=== PATIENT | female | born 1945 | race Hispanic/Latino ===

== ENCOUNTER 2019-03-25 15:54 | Emergency (ER) | payer MEDICARE, OTHER ==
[~2019-03-25] VITALS: Ht 152.4 cm; Wt 34.0 kg
--- OUTSIDE RECORDS SUMMARY | 2019-03-25 15:56 | XMS REPORT ---
Author Author [facility] Address Unknown Phone Unavailable Care Team Providers Care Process Control Tech Name Role Phone LOWELLLUCIANA Dangelo MAURO Unavailable Unavailable SERG POTTER Unavailable Unavailable Problems This patient has no known problems. Allergies, Adverse Reactions, Alerts This patient has no known allergies or adverse reactions. Medications This patient has no known medications. Results Test Description Test Time Test Comments Text Results Atomic Results Result Comments CT, BRAIN, WITHOUT CONTRAST 2018-07-23 21:06:[address] head without contrast 07/23/2018 9:05 PM CLINICAL HISTORY: 72-year-old woman with severe diffuse headache for 2 days, no injury, not on anticoagulant TECHNIQUE: Axial noncontrast CT images through the head were obtained. This examination was performed according to our departmental dose optimization program, which includes automated exposure control, adjustment of the mA and/or kV according to patient size, and/or use of iterated reconstruction technique. COMPARISON: 05/11/2017 FINDINGS: There is no hemorrhage, extra-axial collection, mass, hydrocephalus, or midline shift. There is mild microvascular ischemia in the supratentorial white matter. There is atherosclerotic calcification of the intracranial arterial vasculature. There is generalized parenchymal volume loss. There is a right mastoid effusion. The visualized paranasal sinuses and left tympanomastoid cavity are well aerated. The skull is osteopenic, but intact. IMPRESSION: No intracranial hemorrhage or mass effect. Chronic appearing microvascular and involutional changes. If concern for acute pathology persists, further evaluation with MRI is recommended. Signed: Wilfred Navarro Verified Date/Time: 07/23/2018 21:06:42 Reading Location: [facility] Radiology Reading Room D CULTURE 2017-05-17 10:00:00 CULTURE (Biovest InternationalAKER) (test lgef=4991) No growth in 5 days BLOOD [id number] 10:00:00* Test Item Value Reference Range Comments CULTURE (BEAKER) (test rmnb=9861) No growth in 5 days RAPID TROPONIN [id number] 16:33:00* Test Item Value Reference Range Comments RAPID TROPONIN I (BEAKER) (test btah=4683) < ng/mL <0.05 CBC (HEMOGRAM ONLY)2017-05-11 16:33:00* Test Item Value Reference Range Comments WHITE BLOOD CELL COUNT (BEAKER) (test jedf=964) 11.3 K/ L 4.0-10.0 RED BLOOD CELL COUNT (BEAKER) (test zhbl=096) 4.78 M/ L 4.00-5.00 HEMOGLOBIN (BEAKER) (test xoaa=235) 12.5 GM/DL 12.0-15.0 HEMATOCRIT (BEAKER) (test ipej=743) 39.1 % 36.0-45.0 MEAN CORPUSCULAR VOLUME (BEAKER) (test vrjg=058) 81.8 fL 82.0-99.0 MEAN CORPUSCULAR HEMOGLOBIN (BEAKER) (test iret=642) 26.2 pg 27.0-33.0 MEAN CORPUSCULAR HEMOGLOBIN CONC (BEAKER) (test tkwe=287) 32.0 GM/DL 32.0-36.0 RED CELL DISTRIBUTION WIDTH (BEAKER) (test sxve=505) % 10.3-14.2 Test not performed PLATELET COUNT (BEAKER) (test uogj=357) 270 K/CU MM 150-430 BASIC METABOLIC [id number] 16:33:00* Test Item Value Reference Range Comments SODIUM (BEAKER) (test wwqa=250) 134 meq/L 135-148 POTASSIUM (BEAKER) (test yhyw=474) 4.3 meq/L 3.6-5.5 CHLORIDE (BEAKER) (test cklv=621) 97 meq/L 98-106 CO2 (BEAKER) (test etzz=986) 28 meq/L 24-32 BLOOD UREA NITROGEN (BEAKER) (test xjhg=713) 14 mg/dL 10-26 CREATININE (BEAKER) (test ctxf=969) 0.50 mg/dL 0.50-1.20 GLUCOSE RANDOM (BEAKER) (test bcrl=020) 63 mg/dL 70-110 CALCIUM (BEAKER) (test ntek=992) 9.6 mg/dL 8.5-10.5 EGFR (COTY) (test mlot=2035) 122 mL/min/1.73 sq m ESTIMATED GFR IS NOT ACCURATE CREATININE CLEARANCE IN PREDICTING GLOMERULAR FILTRATION RATE. ESTIMATED GFR IS NOT APPLICABLE FOR DIALYSIS PATIENTS. RAD, CHEST, 1 VIEW, NON [id number] 15:17:00Reason for exam:->COUGHShould this be performed at the bedside?->NoFINAL REPORT Chest dated May 11, 2017 COMPARISON: February 26, 2017 Comment: Heart is in the pelvis normal in size. Bronchiectasis is seen bilaterally. There is a interstitial disease present with peribronchial wall thickening. Findings are suggestive of bronchitis. No pleural effusion or pneumothorax is noted. IMPRESSION: Bronchiectasis and bronchitis. Signed: Ludwin Hooper Verified Date/Time: 05/11/2017 15:17:12 Reading Location: [address] Body Reading Room , BRAIN, WITHOUT [id number] 15:03:00FINAL REPORT CT head without contrast 05/11/2017 3:01 PM CLINICAL HISTORY: Headache, acute, norm neuro exam TECHNIQUE: Axial noncontrast CT images through the head were obtained. This examination was performed according to our departmental dose optimization program, which includes automated exposure control, adjustment of the mA and/or kV according to patient size, and/or use of iterated reconstruction technique. COMPARISON: 05/03/2015 FINDINGS: There is no hemorrhage, extra-axial collection, mass, hydrocephalus, or midline shift. There is negligible chronic appearing microvascular ischemia in the supratentorial white matter. There is atherosclerotic calcification of the intracranial nino rial vasculature. There is generalized parenchymal volume loss. There is bilater al maxillary sinusitis. There is a right mastoid effusion, with partial opacific ation of the right middle ear cavity. The skull is unremarkable. IMPRESSION: No intracranial hemorrhage or mass effect. Bilateral maxillary sinusitis and right tympanomastoid cavity opacification. If concern for acute pathology persists, fu rther evaluation with MRI is recommended. Signed: Wilfred Navarro MDReport Verif ied Date/Time: 05/11/2017 15:03:06 Reading Location: [facility] C013V Neuro Reading Room -LACTIC ACID, [id number] 14:44:00* Test Item Value Reference Range Comments POC-LACTIC ACID, VENOUS (BEAKER) (test ydqq=3546) 0.8 mmol/L 0.9-1.7 TESTED AT [facility] [address] [facility] [address] BLOOD [id number] 17:58:00* Test Item Value Reference Range Comments CULTURE (BEAKER) (test wemu=8991) From Aerobic Bottle Only Haemophilus influenzaeType BBeta-lactamase negative GRAM STAIN RESULT (BEAKER) (test ouzf=8051) From aerobic bottle only: gram negative rods HAEMOPHILUS INFLUENZA DETECTEDFirst line therapy: ceftriaxone meropenem if criti sherrell ill or history of an ESBL producing pathogenDe-escalate based on susceptib ilitiesOther organisms and resistance markers not contained in this PCR panel ca nnot be excluded and follow-up of traditional culture results is required. This sample was tested at the [facility] Clinical Microbiology Laboratory using the Gnammo Blood Culture ID Panel. This test is FDA cleared for in vitro diagn ostic use and has been verified and approved by the [facility] Clinical Microbiology laboratory for clinical use. Reference Range: Not DetectedTexas Department of alth Report:Haemophilus influenzae, Non typeableBetalactamse positive Test Perfo rmed by [facility] [address] [place] [id number] # [id number]: Contreras Camargo, Ph.D [facility].BLOOD CULTURE 2017-03-05 18:00:00* Test Item Value Reference Range Comments CULTURE (BEAKER) (test otdh=0167) No growth in 5 days BLOOD [id number] 18:00:00* Test Item Value Reference Range Comments CULTURE (BEAKER) (test eisq=8784) No growth in 5 days MISCELLANEOUS LAB [id number] 14:30:00* Test Item Value Reference Range Comments SCAN RESULT (test lkch=[id number]) Result comments: HAEMOPHILUS INFLUENZA DETECTED First line therapy: ceftriaxone meropenem if critically ill or history of an ESBL producing pathogen De-escalate based on susceptibilities Other organisms and resistance markers not contained in this PCR panel cannot be excluded and follow-up of traditional culture result s is required. This sample was tested at the [facility] Clinical Microbiology Labor atory using the Payoneer Blood Culture ID Panel. This test is FDA clear ed for in vitro diagnostic use and has been verified and approved by the [facility] C linical Microbiology laboratory for clinical use. Reference Range: Not Detected BLOOD [id number] 08:07:00* Test Item Value Reference Range Comments CULTURE (BEAKER) (test dxvv=4528) From Aerobic Bottle Only Same organism has been isolated from culture(s) of the same body site and collection date. Repeat identification performed only after consultation with the clinical microbiology laboratory.Refer to previous culture ofHaemophilus influenzae GRAM STAIN RESULT (BEAKER) (test cekw=8934) From aerobic bottle only: gram negative rods NO BCID REFER TO PREVIOUS H [id number] 04:46:00* Test Item Value Reference Range Comments MAGNESIUM (BEAKER) (test dowm=480) 2.1 mg/dL 1.6-2.6 BASIC METABOLIC [id number] 04:46:00* Test Item Value Reference Range Comments SODIUM (BEAKER) (test gabe=699) 136 meq/L 136-145 POTASSIUM (BEAKER) (test jbje=481) 4.0 meq/L 3.5-5.1 CHLORIDE (BEAKER) (test nyhh=622) 104 meq/L 98-107 CO2 (BEAKER) (test wklo=197) 28 meq/L 22-29 BLOOD UREA NITROGEN (BEAKER) (test ahxb=514) 10 mg/dL 7-21 CREATININE (BEAKER) (test vvly=515) 0.49 mg/dL 0.57-1.25 GLUCOSE RANDOM (BEAKER) (test lpdq=174) 75 mg/dL 70-105 CALCIUM (BEAKER) (test ojnu=680) 8.9 mg/dL 8.4-10.2 EGFR (BEAKER) (test zjyc=0446) 125 mL/min/1.73 sq m ESTIMATED GFR IS NOT ACCURATE CREATININE CLEARANCE IN PREDICTING GLOMERULAR FILTRATION RATE. ESTIMATED GFR IS NOT APPLICABLE FOR DIALYSIS PATIENTS. CBC W/PLT COUNT & AUTO [id number] 04:31:00* Test Item Value Reference Range Comments WHITE BLOOD CELL COUNT (BEAKER) (test pkyo=095) 5.6 K/ L 3.5-10.5 RED BLOOD CELL COUNT (BEAKER) (test utjc=575) 3.65 M/ L 3.93-5.22 HEMOGLOBIN (BEAKER) (test dkbh=531) 9.4 GM/DL 11.2-15.7 HEMATOCRIT (BEAKER) (test rthh=617) 30.0 % 34.1-44.9 MEAN CORPUSCULAR VOLUME (BEAKER) (test vdir=632) 82.2 fL 79.4-94.8 MEAN CORPUSCULAR HEMOGLOBIN (BEAKER) (test anwd=496) 25.8 pg 25.6-32.2 MEAN CORPUSCULAR HEMOGLOBIN CONC (BEAKER) (test bznm=279) 31.3 GM/DL 32.2-35.5 RED CELL DISTRIBUTION WIDTH (BEAKER) (test vupo=539) 14.8 % 11.7-14.4 PLATELET COUNT (BEAKER) (test upng=502) 262 K/CU MM 150-450 MEAN PLATELET VOLUME (BEAKER) (test psnt=267) 8.3 fL 9.4-12.3 NUCLEATED RED BLOOD CELLS (BEAKER) (test ekcj=966) 0 /100 WBC 0-0 NEUTROPHILS RELATIVE PERCENT (BEAKER) (test zylh=181) 69 % LYMPHOCYTES RELATIVE PERCENT (BEAKER) (test vcug=547) 20 % MONOCYTES RELATIVE PERCENT (BEAKER) (test zgpo=749) 10 % EOSINOPHILS RELATIVE PERCENT (BEAKER) (test vzox=122) 1 % BASOPHILS RELATIVE PERCENT (BEAKER) (test uvmq=828) 0 % NEUTROPHILS ABSOLUTE COUNT (BEAKER) (test khpm=140) 3.83 K/ L 1.56-6.13 LYMPHOCYTES ABSOLUTE COUNT (BEAKER) (test eela=688) 1.13 K/ L 1.18-3.74 MONOCYTES ABSOLUTE COUNT (BEAKER) (test qpql=828) 0.56 K/ L 0.24-0.36 EOSINOPHILS ABSOLUTE COUNT (BEAKER) (test bcak=153) 0.03 K/ L 0.04-0.36 BASOPHILS ABSOLUTE COUNT (BEAKER) (test ilhn=326) 0.01 K/ L 0.01-0.08 IMMATURE GRANULOCYTES-RELATIVE PERCENT (BEAKER) (test phwk=8811) 0 % 0-1 [id number] 15:02:00* Test Item Value Reference Range Comments PHOSPHORUS (BEAKER) (test exlh=431) 3.8 mg/dL 2.3-4.7 [id number] 15:02:00* Test Item Value Reference Range Comments MAGNESIUM (BEAKER) (test audp=613) 1.8 mg/dL 1.6-2.6 BASIC METABOLIC [id number] 15:02:00* Test Item Value Reference Range Comments SODIUM (BEAKER) (test zucy=493) 135 meq/L 136-145 POTASSIUM (BEAKER) (test rthy=422) 4.3 meq/L 3.5-5.1 CHLORIDE (BEAKER) (test afhp=215) 104 meq/L 98-107 CO2 (BEAKER) (test dphr=676) 28 meq/L 22-29 BLOOD UREA NITROGEN (BEAKER) (test rrpq=175) 8 mg/dL 7-21 CREATININE (BEAKER) (test mygt=877) 0.47 mg/dL 0.57-1.25 GLUCOSE RANDOM (BEAKER) (test ryhu=454) 102 mg/dL 70-105 CALCIUM (BEAKER) (test slmz=285) 9.1 mg/dL 8.4-10.2 EGFR (BEAKER) (test xkoi=9168) 131 mL/min/1.73 sq m ESTIMATED GFR IS NOT ACCURATE CREATININE CLEARANCE IN PREDICTING GLOMERULAR FILTRATION RATE. ESTIMATED GFR IS NOT APPLICABLE FOR DIALYSIS PATIENTS. URINE [id number] 14:45:00* Test Item Value Reference Range Comments CULTURE (BEAKER) (test hnzc=6528) <10,000 col/mL skin cam [id number] 04:40:00* Test Item Value Reference Range Comments PHOSPHORUS (BEAKER) (test wecr=390) 1.4 mg/dL 2.3-4.7 [id number] 04:32:00* Test Item Value Reference Range Comments MAGNESIUM (BEAKER) (test kach=897) 1.6 mg/dL 1.6-2.6 BASIC METABOLIC [id number] 04:32:00* Test Item Value Reference Range Comments SODIUM (BEAKER) (test wcjd=869) 133 meq/L 136-145 POTASSIUM (BEAKER) (test uihq=960) 3.4 meq/L 3.5-5.1 CHLORIDE (BEAKER) (test nqbj=171) 104 meq/L 98-107 CO2 (BEAKER) (test hqsl=466) 25 meq/L 22-29 BLOOD UREA NITROGEN (BEAKER) (test ucrz=247) 12 mg/dL 7-21 CREATININE (BEAKER) (test osnl=004) 0.46 mg/dL 0.57-1.25 GLUCOSE RANDOM (BEAKER) (test jddv=464) 102 mg/dL 70-105 CALCIUM (BEAKER) (test lwhq=428) 9.1 mg/dL 8.4-10.2 EGFR (BEAKER) (test lbvu=9007) 134 mL/min/1.73 sq m ESTIMATED GFR IS NOT ACCURATE CREATININE CLEARANCE IN PREDICTING GLOMERULAR FILTRATION RATE. ESTIMATED GFR IS NOT APPLICABLE FOR DIALYSIS PATIENTS. LACTIC ACID, VENOUS, WHOLE [id number] 04:26:00* Test Item Value Reference Range Comments LACTATE BLOOD VENOUS (2) (BEAKER) (test xrxz=8814) 1.6 mmol/L 0.5-2.2 Effective 10/19/2015: Units/Reference Range ChangeNew: 0.5-2.2 mmol/L Previous: 5 -20 mg/dLCBC W/PLT COUNT & AUTO [id number] 04:20:00* Test Item Value Reference Range Comments WHITE BLOOD CELL COUNT (BEAKER) (test gmac=390) 8.5 K/ L 3.5-10.5 RED BLOOD CELL COUNT (BEAKER) (test eaua=088) 3.54 M/ L 3.93-5.22 HEMOGLOBIN (BEAKER) (test updh=741) 9.1 GM/DL 11.2-15.7 HEMATOCRIT (BEAKER) (test toyn=055) 29.1 % 34.1-44.9 MEAN CORPUSCULAR VOLUME (BEAKER) (test gyhp=499) 82.2 fL 79.4-94.8 MEAN CORPUSCULAR HEMOGLOBIN (BEAKER) (test ahzi=945) 25.7 pg 25.6-32.2 MEAN CORPUSCULAR HEMOGLOBIN CONC (BEAKER) (test xage=570) 31.3 GM/DL 32.2-35.5 RED CELL DISTRIBUTION WIDTH (BEAKER) (test gypn=337) 14.6 % 11.7-14.4 PLATELET COUNT (BEAKER) (test yxix=893) 241 K/CU MM 150-450 MEAN PLATELET VOLUME (BEAKER) (test oeme=960) 8.6 fL 9.4-12.3 NUCLEATED RED BLOOD CELLS (BEAKER) (test vydc=498) 0 /100 WBC 0-0 NEUTROPHILS RELATIVE PERCENT (BEAKER) (test hsfc=932) 83 % LYMPHOCYTES RELATIVE PERCENT (BEAKER) (test zfiu=327) 11 % MONOCYTES RELATIVE PERCENT (BEAKER) (test daoi=570) 6 % EOSINOPHILS RELATIVE PERCENT (BEAKER) (test opuh=456) 0 % BASOPHILS RELATIVE PERCENT (BEAKER) (test neer=421) 0 % NEUTROPHILS ABSOLUTE COUNT (BEAKER) (test japo=211) 7.03 K/ L 1.56-6.13 LYMPHOCYTES ABSOLUTE COUNT (BEAKER) (test hvvb=964) 0.93 K/ L 1.18-3.74 MONOCYTES ABSOLUTE COUNT (BEAKER) (test tevs=364) 0.49 K/ L 0.24-0.36 EOSINOPHILS ABSOLUTE COUNT (BEAKER) (test cfdk=189) 0.00 K/ L 0.04-0.36 BASOPHILS ABSOLUTE COUNT (BEAKER) (test byds=676) 0.01 K/ L 0.01-0.08 IMMATURE GRANULOCYTES-RELATIVE PERCENT (BEAKER) (test ldfm=4173) 0 % 0-1 CT, CHEST, WITHOUT [id number] 00:54:00FINAL REPORT CT, CHEST, WITHOUT CONTRAST INDICATION: "Acute resp illness, immunocompromised, prior xray" COMPARISON: . No prior chest CTs dating back to at least 2014 TECHNIQUE: Noncontrast axially oriented images were obtained from the thoracic inlet through the lung bases. Coronal and sagittal reformats were provided. DOSE REDUCTION: Dose modulation, iterative reconstruction, and/or weight-based adjustment of the mA/kV was utilized to reduce the radiation dose to as low as reasonably achievable. FINDINGS: Great vessels are normal in course and caliber.No cardiomegaly.Right IJ line terminates in the lower SVC. Redemonstration of varicose bronchiectasis with a lower lobe predominance. There is complete collapse of the middle lobe. There is mosaic attenuation in the upper lobes. There are scattered areas of mucous plugging. 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 The bronchiectasis has wors ened since the most recent prior exam on 08/09/2015. This is most notable in the lower lobes. Additionally, there are small bilateral effusions. The one on the r ight is partially loculated. There is trace fluid tracking along the superior as pect of the major fissures. Visualized portion of the upper abdomen shows no acu te abnormality. No acute osseous abnormality. IMPRESSION:Worsening bronchiectasi s, most likely postinfectious in origin.No obvious superimposed acute infectious process.Small bilateral pleural effusions, partially loculated on the right. No active pulmonary edema. Signed: Emma Smith MDReport Verified Date/Time: 0 02/28/2017 00:54:35 Reading Location: [facility] C0X Ortho Consult Reading Room IRATORY PANEL [id number] 14:07:00* Test Item Value Reference Range Comments HUMAN METAPNEUMOVIRUS (BEAKER) (test xwnr=4269) Not detected Not detected, Inconclusive RHINOVIRUS (BEAKER) (test rozn=8147) Detected Not detected, Inconclusive Assay is not able differentiate between Human Rhinovirus and Enterovirus INFLUENZA A (BEAKER) (test momp=9886) Not detected Not detected, Inconclusive INFLUENZA A SUBTYPE H1 (BEAKER) (test fdeg=7590) Not detected Not detected, Inconclusive INFLUENZA A SUBTYPE H3 (BEAKER) (test mehs=4705) Not detected Not detected, Inconclusive INFLUENZA A SUBTYPE H1-2009 (BEAKER) (test kmgt=9336) Not detected Not detected, Inconclusive INFLUENZA B (BEAKER) (test rlpo=0009) Not detected Not detected, Inconclusive RESPIRATORY SYNCYTIAL VIRUS (BEAKER) (test pxgs=7747) Not detected Not detected, Inconclusive PARAINFLUENZA VIRUS 1 (BEAKER) (test utxp=9311) Not detected Not detected, Inconclusive PARAINFLUENZA VIRUS 2 (BEAKER) (test ojfj=1477) Not detected Not detected, Inconclusive PARAINFLUENZA VIRUS 3 (BEAKER) (test tyvu=8995) Not detected Not detected, Inconclusive PARAINFLUENZA VIRUS 4 (BEAKER) (test cofc=1680) Not detected Not detected, Inconclusive ADENOVIRUS (BEAKER) (test znfv=0601) Not detected Not detected, Inconclusive CORONAVIRUS 229E (BEAKER) (test cnzv=4874) Not detected Not detected, Inconclusive CORONAVIRUS HKU1 (BEAKER) (test jshz=6798) Not detected Not detected, Inconclusive CORONAVIRUS NL63 (BEAKER) (test kjyz=3303) Not detected Not detected, Inconclusive CORONAVIRUS OC43 (BEAKER) (test futt=6296) Not detected Not detected, Inconclusive BORDETELLA PERTUSSIS (BEAKER) (test enzl=8146) Not detected Not detected, Inconclusive CHLAMYDOPHILA PNEUMONIAE (BEAKER) (test pcvc=2221) Not detected Not detected, Inconclusive MYCOPLASMA PNEUMONIAE (BEAKER) (test dcqn=1729) Not detected Not detected, Inconclusive CBC W/PLT COUNT & AUTO [id number] 12:17:00* Test Item Value Reference Range Comments WHITE BLOOD CELL COUNT (BEAKER) (test kvtv=577) 6.9 K/ L 3.5-10.5 RED BLOOD CELL COUNT (BEAKER) (test xisi=152) 4.02 M/ L 3.93-5.22 HEMOGLOBIN (BEAKER) (test ayge=201) 10.2 GM/DL 11.2-15.7 HEMATOCRIT (BEAKER) (test xzwv=269) 33.0 % 34.1-44.9 MEAN CORPUSCULAR VOLUME (BEAKER) (test xhgt=402) 82.1 fL 79.4-94.8 MEAN CORPUSCULAR HEMOGLOBIN (BEAKER) (test vgdc=844) 25.4 pg 25.6-32.2 MEAN CORPUSCULAR HEMOGLOBIN CONC (BEAKER) (test eiaz=142) 30.9 GM/DL 32.2-35.5 RED CELL DISTRIBUTION WIDTH (BEAKER) (test nqqb=207) 14.7 % 11.7-14.4 PLATELET COUNT (BEAKER) (test mwln=694) 242 K/CU MM 150-450 MEAN PLATELET VOLUME (BEAKER) (test ejgq=468) 8.5 fL 9.4-12.3 NUCLEATED RED BLOOD CELLS (BEAKER) (test xrjp=605) 0 /100 WBC 0-0 NEUTROPHILS RELATIVE PERCENT (BEAKER) (test qkib=479) 95 % LYMPHOCYTES RELATIVE PERCENT (BEAKER) (test medx=978) 2 % MONOCYTES RELATIVE PERCENT (BEAKER) (test aeku=745) 2 % EOSINOPHILS RELATIVE PERCENT (BEAKER) (test zfow=108) 0 % BASOPHILS RELATIVE PERCENT (BEAKER) (test mwjq=463) 0 % NEUTROPHILS ABSOLUTE COUNT (BEAKER) (test urxv=049) 6.53 K/ L 1.56-6.13 LYMPHOCYTES ABSOLUTE COUNT (BEAKER) (test uurf=926) 0.16 K/ L 1.18-3.74 MONOCYTES ABSOLUTE COUNT (BEAKER) (test wrqb=906) 0.15 K/ L 0.24-0.36 EOSINOPHILS ABSOLUTE COUNT (BEAKER) (test ulei=277) 0.00 K/ L 0.04-0.36 BASOPHILS ABSOLUTE COUNT (BEAKER) (test mitc=743) 0.01 K/ L 0.01-0.08 IMMATURE GRANULOCYTES-RELATIVE PERCENT (BEAKER) (test wvdd=1488) 0 % 0-1 PROTHROMBIN TIME/[id number] 11:36:00* Test Item Value Reference Range Comments PROTIME (BEAKER) (test jsbm=738) 16.9 seconds 11.7-14.7 INR (BEAKER) (test gmxz=616) 1.4 <=5.9 RECOMMENDED COUMADIN/WARFARIN INR THERAPY RANGESSTANDARD DOSE: 2.0 - 3.0 Inclu amadeo: PROPHYLAXIS for venous thrombosis, systemic embolization; TREATMENT for jamaal ous thrombosis and/or pulmonary embolus.HIGH RISK: Target INR is 2.5-3.5 for pat ients with mechanical heart valves.[id number] 11:36:00* Test Item Value Reference Range Comments PARTIAL THROMBOPLASTIN TIME (BEAKER) (test hoqx=476) 31.7 seconds 22.5-36.0 STREP PNEUMONIAE [id number] 08:59:00* Test Item Value Reference Range Comments STREP PNEUMONIAE ANTIGEN (BEAKER) (test wipy=1531) Presumptive negative for pneumococcal pneumonia - see comment Presumptive negative for pneumococcal pneumonia - see commen Presumptive negative for pneumococcal pneumonia, suggesting no current or recent pneumococcal infection. Infection due to S. pneumoniae cannot be ruled out since the antigen present in the sample may be below the detection limit of the test. LEGIONELLA ANTIGEN, [id number] 08:59:00* Test Item Value Reference Range Comments L. PNEUMOPHILA SEROGP 1 UR AG (BEAKER) (test hsyz=4772) Negative - see comment Negative for L. pneumophila serogroup 1 antigen, suggesting no recent or current infection with this serogroup. Legionellosis cannot be ruled out since other serogroups and species may cause disease. URINALYSIS W/ [id number] 07:18:00* Test Item Value Reference Range Comments COLOR (BEAKER) (test fynq=935) Yellow CLARITY (BEAKER) (test abvw=019) Clear SPECIFIC GRAVITY UA (BEAKER) (test vbmc=837) 1.013 1.001-1.035 PH UA (BEAKER) (test nabc=868) 6.0 5.0-8.0 PROTEIN UA (BEAKER) (test idbr=537) Negative Negative GLUCOSE UA (BEAKER) (test kahm=692) Negative Negative KETONES UA (BEAKER) (test rhnr=653) 10 mg/dL Negative BILIRUBIN UA (BEAKER) (test vixw=458) Negative Negative BLOOD UA (BEAKER) (test fryt=970) Negative Negative NITRITE UA (BEAKER) (test rqwu=838) Negative Negative LEUKOCYTE ESTERASE UA (BEAKER) (test qtpx=275) Trace Negative UROBILINOGEN UA (BEAKER) (test mamc=404) 0.2 mg/dL 0.2-1.0 RBC UA (BEAKER) (test agkl=254) < /HPF WBC UA (BEAKER) (test yrio=256) 3 /HPF BACTERIA (BEAKER) (test yjyr=133) Occasional MUCUS (BEAKER) (test pwle=1495) Rare SQUAMOUS EPITHELIAL (BEAKER) (test euww=217) < /HPF SOURCE(BEAKER) (test avfy=5239) Urine, Voided [id number] 05:27:00* Test Item Value Reference Range Comments PHOSPHORUS (BEAKER) (test gqdd=858) 1.8 mg/dL 2.3-4.7 [id number] 05:27:00* Test Item Value Reference Range Comments MAGNESIUM (BEAKER) (test uqdq=507) 1.7 mg/dL 1.6-2.6 COMPREHENSIVE METABOLIC [id number] 05:27:00* Test Item Value Reference Range Comments TOTAL PROTEIN (BEAKER) (test mnol=994) 5.2 gm/dL 6.0-8.3 ALBUMIN (BEAKER) (test sewh=4534) 2.6 g/dL 3.5-5.0 ALKALINE PHOSPHATASE (BEAKER) (test eopm=560) 64 U/L 40-150 BILIRUBIN TOTAL (BEAKER) (test fxuw=651) 0.6 mg/dL 0.2-1.2 SODIUM (BEAKER) (test kell=762) 132 meq/L 136-145 POTASSIUM (BEAKER) (test wqob=021) 3.7 meq/L 3.5-5.1 CHLORIDE (BEAKER) (test zfog=701) 103 meq/L 98-107 CO2 (BEAKER) (test vdbz=740) 26 meq/L 22-29 BLOOD UREA NITROGEN (BEAKER) (test ghny=334) 12 mg/dL 7-21 CREATININE (BEAKER) (test kzlw=024) 0.47 mg/dL 0.57-1.25 GLUCOSE RANDOM (BEAKER) (test oahz=715) 142 mg/dL 70-105 CALCIUM (BEAKER) (test tucr=502) 9.0 mg/dL 8.4-10.2 AST (SGOT) (BEAKER) (test vbnb=835) 19 U/L 5-34 ALT (SGPT) (BEAKER) (test ihlh=868) 6 U/L 6-55 EGFR (BEAKER) (test ygdc=1451) 131 mL/min/1.73 sq m ESTIMATED GFR IS NOT ACCURATE CREATININE CLEARANCE IN PREDICTING GLOMERULAR FILTRATION RATE. ESTIMATED GFR IS NOT APPLICABLE FOR DIALYSIS PATIENTS. CBC W/PLT COUNT & AUTO [id number] 05:22:00* Test Item Value Reference Range Comments WHITE BLOOD CELL COUNT (BEAKER) (test xtuv=555) 7.8 K/ L 3.5-10.5 RED BLOOD CELL COUNT (BEAKER) (test kthe=359) 3.74 M/ L 3.93-5.22 HEMOGLOBIN (BEAKER) (test fjmo=492) 9.6 GM/DL 11.2-15.7 HEMATOCRIT (BEAKER) (test lkcs=741) 31.0 % 34.1-44.9 MEAN CORPUSCULAR VOLUME (BEAKER) (test frcj=222) 82.9 fL 79.4-94.8 MEAN CORPUSCULAR HEMOGLOBIN (BEAKER) (test ixfb=545) 25.7 pg 25.6-32.2 MEAN CORPUSCULAR HEMOGLOBIN CONC (BEAKER) (test xvyi=732) 31.0 GM/DL 32.2-35.5 RED CELL DISTRIBUTION WIDTH (BEAKER) (test taei=100) 14.9 % 11.7-14.4 PLATELET COUNT (BEAKER) (test clzx=242) 224 K/CU MM 150-450 MEAN PLATELET VOLUME (BEAKER) (test pvwf=638) 8.4 fL 9.4-12.3 NUCLEATED RED BLOOD CELLS (BEAKER) (test pydx=066) 0 /100 WBC 0-0 NEUTROPHILS RELATIVE PERCENT (BEAKER) (test lbbg=905) 96 % LYMPHOCYTES RELATIVE PERCENT (BEAKER) (test wfqq=769) 3 % MONOCYTES RELATIVE PERCENT (BEAKER) (test aywx=686) 1 % EOSINOPHILS RELATIVE PERCENT (BEAKER) (test zrpq=926) 0 % BASOPHILS RELATIVE PERCENT (BEAKER) (test gmev=184) 0 % NEUTROPHILS ABSOLUTE COUNT (BEAKER) (test oelw=817) 7.44 K/ L 1.56-6.13 LYMPHOCYTES ABSOLUTE COUNT (BEAKER) (test mdgz=739) 0.22 K/ L 1.18-3.74 MONOCYTES ABSOLUTE COUNT (BEAKER) (test ehil=413) 0.09 K/ L 0.24-0.36 EOSINOPHILS ABSOLUTE COUNT (BEAKER) (test svdz=675) 0.00 K/ L 0.04-0.36 BASOPHILS ABSOLUTE COUNT (BEAKER) (test klmc=521) 0.00 K/ L 0.01-0.08 IMMATURE GRANULOCYTES-RELATIVE PERCENT (BEAKER) (test cqio=0454) 0 % 0-1 LACTIC ACID, VENOUS, WHOLE [id number] 05:17:00* Test Item Value Reference Range Comments LACTATE BLOOD VENOUS (2) (BEAKER) (test xsaj=7843) 0.9 mmol/L 0.5-2.2 Effective 10/19/2015: Units/Reference Range ChangeNew: 0.5-2.2 mmol/L Previous: 5 -20 mg/dLLACTIC ACID, VENOUS, WHOLE [id number] 01:45:00* Test Item Value Reference Range Comments LACTATE BLOOD VENOUS (2) (BEAKER) (test ltcd=2266) 1.4 mmol/L 0.5-2.2 Effective 10/19/2015: Units/Reference Range ChangeNew: 0.5-2.2 mmol/L Previous: 5 -20 mg/dLBLOOD GAS, [id number] 01:44:00* Test Item Value Reference Range Comments PH ARTERIAL (BEAKER) (test gmxt=305) 7.49 7.35-7.45 PCO2 ARTERIAL (BEAKER) (test gnpq=008) 30 mmHg 35-45 PO2 ARTERIAL (BEAKER) (test gjzb=129) 150 mmHg 80-90 O2 SATURATION ARTERIAL (BEAKER) (test nljv=095) 99.1 % 96.0-97.0 HCO3 ARTERIAL (BEAKER) (test mtpw=266) 23 mmol/L 21-29 BASE EXCESS ARTERIAL (BEAKER) (test dind=956) 0.0 mmol/L -2.0-3.0 PATIENT TEMPERATURE (BEAKER) (test kamz=8658) 36.5 C FIO2 (BEAKER) (test syym=2375) 21.0 % OXYGEN SATURATION, [id number] 01:42:00* Test Item Value Reference Range Comments O2 SATURATION (MEASURED) (BEAKER) (test wuvg=6169) 66.4 % If patient has internal jugular ( IJ) or subclavian central line or PICC line. D raw from distal port. Label as central venous oxygen.RAD, CHEST, 1 VIEW, NON [id number] 18:44:00Reason for exam:->COUGHReason for exam:->GENERALIZED WEAKNESS, NOT ASSOCIATED WITH EXTREMITIESShould this be performed at the bedside?->YesFINAL REPORT Chest One view: Reason for exam: Cough Comparison Study: Chest x-ray, earlier today Discussion: A right IJ central venous catheter has been placed with tip in the distal SVC. Patchy mid and lower lung opacities are again identified which are not appreciably changed, accounting for differences in technique and inspiration. The heart size is normal. There is no pleural effusion or pneumothorax. Impression: Right IJ central venous catheter, described above. Signed: Levy Johnson MDReport Verified Date/Time: 02/26/2017 18:44:56 Reading Location: [facility] B1 [id number] Consult Reading Room (HEMOGRAM ONLY)2017-02-26 14:08:00* Test Item Value Reference Range Comments WHITE BLOOD CELL COUNT (BEAKER) (test tzle=663) 19.6 K/ L 4.0-10.0 RED BLOOD CELL COUNT (BEAKER) (test fxia=312) 4.88 M/ L 4.00-5.00 HEMOGLOBIN (BEAKER) (test omuc=849) 13.1 GM/DL 12.0-15.0 HEMATOCRIT (BEAKER) (test nacs=131) 41.0 % 36.0-45.0 MEAN CORPUSCULAR VOLUME (BEAKER) (test owpo=855) 84.0 fL 82.0-99.0 MEAN CORPUSCULAR HEMOGLOBIN (BEAKER) (test dzvk=105) 26.8 pg 27.0-33.0 MEAN CORPUSCULAR HEMOGLOBIN CONC (BEAKER) (test prfm=901) 32.0 GM/DL 32.0-36.0 RED CELL DISTRIBUTION WIDTH (BEAKER) (test jmoz=205) % 10.3-14.2 Test not performed. PLATELET COUNT (BEAKER) (test btql=291) 311 K/CU MM 150-430 BASIC METABOLIC [id number] 12:52:00* Test Item Value Reference Range Comments SODIUM (BEAKER) (test lwgz=129) 131 meq/L 135-148 POTASSIUM (BEAKER) (test nclg=752) 3.9 meq/L 3.6-5.5 CHLORIDE (BEAKER) (test onze=760) 96 meq/L 98-106 CO2 (BEAKER) (test xtwp=084) 28 meq/L 24-32 BLOOD UREA NITROGEN (BEAKER) (test uter=053) 14 mg/dL 10-26 CREATININE (BEAKER) (test qjej=870) 0.80 mg/dL 0.50-1.20 GLUCOSE RANDOM (BEAKER) (test qalb=412) 102 mg/dL 70-110 CALCIUM (BEAKER) (test bbxv=922) 10.0 mg/dL 8.5-10.5 EGFR (BEAKER) (test nzlr=3917) 71 mL/min/1.73 sq m ESTIMATED GFR IS NOT ACCURATE CREATININE CLEARANCE IN PREDICTING GLOMERULAR FILTRATION RATE. ESTIMATED GFR IS NOT APPLICABLE FOR DIALYSIS PATIENTS. HEPATIC FUNCTION [id number] 12:51:00* Test Item Value Reference Range Comments TOTAL PROTEIN (BEAKER) (test uamx=762) 7.2 gm/dL 6.0-8.5 ALBUMIN (BEAKER) (test rawv=2042) 3.6 g/dL 3.5-5.0 BILIRUBIN TOTAL (BEAKER) (test ozxl=114) 1.0 mg/dL 0.1-1.2 BILIRUBIN DIRECT (BEAKER) (test fcnx=825) mg/dL 0.0-0.4 Test not performed. ALKALINE PHOSPHATASE (BEAKER) (test kmsm=958) 72 U/L 30-115 AST (SGOT) (BEAKER) (test zrxw=977) 22 U/L 5-40 ALT (SGPT) (BEAKER) (test nyld=190) 32 U/L 5-50 RAPID [id number] 12:46:00* Test Item Value Reference Range Comments RAPID CKMB (BEAKER) (test fbxp=7628) < ng/mL 0.0-4.3 RAPID [id number] 12:46:00* Test Item Value Reference Range Comments RAPID MYOGLOBIN (BEAKER) (test bydd=6482) 75 ng/mL <107 RAPID TROPONIN [id number] 12:46:00* Test Item Value Reference Range Comments RAPID TROPONIN I (BEAKER) (test brrz=0866) < ng/mL <0.05 B-TYPE NATRIURETIC FACTOR (BNP)2017-02-26 12:45:00* Test Item Value Reference Range Comments B-TYPE NATRIURETIC PEPTIDE (BEAKER) (test owhy=370) < pg/mL 0-100 RAD, CHEST, 2 [id number] 11:50:00Reason for exam:->COUGHReason for exam:-> GENERALIZED WEAKNESS, NOT ASSOCIATED WITH EXTREMITIESFINAL REPORT TECHNIQUE: Frontal and lateral chest radiographs dated 02/26/2017. CLINICAL HISTORY: Cough, weakness COMPARISON STUDY: Chest radiograph dated 06/18/2016 IMPRESSION:Stable, bilateral bronchiectasis with areas of consolidation in the right middle and left lower lobes. Superimposed infection should be excluded clinically. No new consolidation visualized. No pleural effusion or pneumothorax. Cardiomediastinal silhouette is normal in size. No pulmonary edema. No fracture. Signed: Ethan Whatleyeport Verified Date/Time: 02/26/2017 11:50:43 Reading Location: [facility] Radiology Reading Room Electron ically signed by: ETHAN WHATLEY on 02/26/2017 11:50 AM POCT-LACTIC ACID, [id number] 11:49:00* Test Item Value Reference Range Comments POC-LACTIC ACID, VENOUS (BEAKER) (test ukvl=1367) 1.5 mmol/L 0.9-1.7 TESTED AT [facility]- [address] [facility] [address]
[2019-03-25] MEDS ORDERED: HYDROCODONE/APAP 5MG-325MG TAB PO ONE (16:45)
[2019-03-25] MEDS ORDERED: TRAMADOL HCL 50 MG TAB PO ONE (16:45)
--- NOTE | 2019-03-25 17:54 | Diagnostic Imaging Report ---
EXAMINATION: SHOULDER LEFT COMPLETE, WRIST COMPLETE LEFT, ELBOW LEFT COMPLETE INDICATION: Trauma COMPARISON: None FINDINGS: Internal and external rotation views of the left shoulder, PA and lateral views of the left wrist, and PA, lateral and oblique views of the left elbow were obtained. Left shoulder: No acute fracture or dislocation. Alignment is anatomic. Patchy opacities of the partially visualized left lung base, possibly subsegmental atelectasis. Left elbow: There is a mildly displaced comminuted fracture of the olecranon process with intra-articular extension. An additional fracture line extends along the joint more anteriorly. There is approximately 5 mm posterior displacement of dominant fracture fragment. Large associated elbow joint effusion. Left wrist: There is likely a nondisplaced intra-articular fracture of the distal radius. Alignment remains anatomic. No other fractures identified. IMPRESSION: Mildly displaced comminuted fracture of the olecranon process with approximately 5 mm posterior displacement of the dominant fracture fragment. Large associated elbow joint effusion. Likely nondisplaced intra-articular fracture of the distal radius. CT is recommended for confirmation. Signed by: Guadalupe Nice MD on 03/25/2019 5:51 PM
--- NOTE | 2019-03-25 17:59 | Diagnostic Imaging Report ---
EXAMINATION: CHEST 2 VIEWS INDICATION: Trauma COMPARISON: None FINDINGS: LINES/TUBES:None LUNGS:The lungs are hyperinflated. There are bilateral emphysematous changes. Bilateral lower lobe dependent tubular bronchiectasis. Bilateral lower lobe predominant nodular opacities, some of which are cavitary. The largest of these are at the left lung base, measuring up to 1.8 cm. PLEURA:No pleural effusion or pneumothorax. MEDIASTINUM:The cardiomediastinal silhouette appears normal in size and shape. Atherosclerotic calcifications of the thoracic aorta. BONES/SOFT TISSUES:No displaced rib fracture. ABDOMEN:No free air under the diaphragm. IMPRESSION: Hyperinflated lungs with bilateral lower lobe dependent tubular bronchiectasis and nodular opacities, some of which are cavitary. Differential considerations include chronic atypical infectious etiology such as microbacterium avium complex or less likely septic emboli or neoplastic etiologies. RECOMMENDATIONS: Chest CT Signed by: Guadalupe Nice MD on 03/25/2019 5:56 PM
== END 2019-03-25 19:38 | disposition home or self-care (01) ==
LOC: ER 15:54
DX: S52.325A Nondisplaced transverse fracture of shaft of left radius, initial encounter for closed fracture (principal); S52.202A Unspecified fracture of shaft of left ulna, initial encounter for closed fracture; W01.0XXA Fall on same level from slipping, tripping and stumbling without subsequent striking against object, initial encounter; Y92.512 Supermarket, store or market as the place of occurrence of the external cause; M32.9 Systemic lupus erythematosus, unspecified; J45.909 Unspecified asthma, uncomplicated
CPT/HCPCS: 71046; 99283